=== PATIENT | female | born 1980 | race Caucasian/White ===

== ENCOUNTER 2017-06-26 21:57 | Emergency (ER) | payer MEDICAID | END 2017-06-27 02:52 | disposition home or self-care (01) | LOC: FTE 21:57 | DX: S80.02XA Contusion of left knee, initial encounter (principal); S93.402A Sprain of unspecified ligament of left ankle, initial encounter; W01.198A Fall on same level from slipping, tripping and stumbling with subsequent striking against other object, initial encounter; Y92.9 Unspecified place or not applicable | CPT/HCPCS: 73562; 73610; 99283-25 ==